=== PATIENT | female | born 1965 | race Caucasian/White ===

== ENCOUNTER 2018-12-06 18:05 | Emergency (ER) | payer OTHER ==
[2018-12-06 18:08] VITALS: BP 136/83; PULSE 109; TEMP 98.5; BMI 26.5
--- NOTE | 2018-12-06 18:08 | PDOC ---
Rapid Medical Evaluation Time Seen by Provider: 12/06/18 18:06 Medical Evaluation: Allergies Allergy/AdvReac Type Severity Reaction Status Date / Time No Known Allergies Allergy Verified 12/06/18 18:06 12/06/18 18:06 I have performed a brief in-person evaluation of this patient. The patient presents with a chief complaint of:abd/flank pain w/ n/v today. H/o kidney stones Pertinent physical exam findings:Tachy to 109, edtih mildly uncomfortable I have ordered the following:labs The patient will proceed to the ED for further evaluation. Discharge Disposition - Diagnosis Abdominal pain Qualifiers: Abdominal location: unspecified location Qualified Code(s): R10.9 - Unspecified abdominal pain - Referrals - Patient Instructions - Post Discharge Activity
[2018-12-06 18:32] LABS: BASO % 0.2 % (0-2.0); EOS % 0.5 % (0-4.5); HEMATOCRIT 44.2 % (32.4-45.2); HEMOGLOBIN 14.9 GM/dL (10.7-15.3); LYMPH % 5.4 % (8-40); MCH 30.2 pg (25.7-33.7); MCHC 33.8 g/dl (32.0-36.0); MEAN CELL VOLUME 89.3 fl (80-96); MEAN PLT VOLUME 8.8 fl (7.5-11.1); MONO % 2.7 % (3.8-10.2); NEUT % 91.2 % (42.8-82.8); PLATELET COUNT 231 K/MM3 (134-434); RBC 4.94 M/mm3 (3.60-5.2); RDW 12.7 % (11.6-15.6); WHITE BLOOD COUNT 11.2 K/mm3 (4.0-10.0)
[2018-12-06 19:21] LABS: PLATELET ESTIMATE ADEQUATE
[2018-12-06 19:27] LABS: HCG,QUALITATIVE URINE Negative
[2018-12-06 19:28] LABS: URINE APPEARANCE SLCLOUDY; URINE BILIRUBIN NEGATIVE (<2.0 mg/dL); URINE COLOR YELLOW; URINE GLUCOSE (UA) NEGATIVE (NEGATIVE); URINE KETONE 1+ (NEGATIVE); URINE LEUK ESTERASE 2+ (NEGATIVE); URINE NITRITE NEGATIVE (NEGATIVE); URINE PROTEIN NEGATIVE (NEGATIVE)
[2018-12-06 19:29] LABS: EPI CELLS FEW /HPF (FEW); URINE BACTERIA RARE /hpf (NONE SEEN); URINE MUCUS RARE
--- NOTE | 2018-12-06 19:29 | PDOC ---
History of Present Illness - General Chief Complaint: Pain, Acute Stated Complaint: NAUSEA/VOMITING Time Seen by Provider: 12/06/18 18:06 History Source: Patient Exam Limitations: No Limitations - History of Present Illness Travel History: No Initial Comments: 12/06/18 19:17 Best Contact: PCP: Dr. Edna Snell/Bx Pmhx: Renal colic Pshx:1999: [facility] Allergies:NKDA FH:0 Social Hx: Cigarettes/ 0 Alcohol/ 0 Drugs/0 LMP:menopausal since 2018 53-year-old female presents to the emergency department complaining of 5/10 sharp right upper quadrant/right lower quadrant abdominal discomfort which radiates to the right flank and associated with some nausea and vomiting, urinary frequency since approximately 1300 hrs. this afternoon along with epigastric discomfort. Symptoms alleviated with belching. No exacerbating factors. Patient denies any fever, chills, diarrhea, headache, dizziness, lightheadedness, neck pain/stiffness, back pains, chest pain, abdominal pains, urinary symptoms: urgency/hesitancy, hematuria, dysuria. No history of similar symptoms. Past History - Past Medical History Allergies/Adverse Reactions: Allergies Allergy/AdvReac Type Severity Reaction Status Date / Time No Known Allergies Allergy Verified 12/06/18 18:06 Home Medications: Ambulatory Orders Nitrofurantoin Monohyd/M-Cryst [Macrobid -] 100 mg PO BID #14 capsule 12/06/18 COPD: No - Suicide/Smoking/Psychosocial Hx Smoking Status: No Smoking History: Never smoked Number of Cigarettes Smoked Daily: 0 Review of Systems - Review of Systems Able to Perform ROS?: Yes Comments:: 12/06/18 19:19 CONSTITUTIONAL: Absent: fever, chills, diaphoresis, generalized weakness, malaise, loss of appetite HEENT: Absent: rhinorrhea, nasal congestion, throat pain, throat swelling, difficulty swallowing, mouth swelling, ear pain, eye pain, visual Changes CARDIOVASCULAR: Absent: chest pain, loss of consciousness, palpitations, irregular heart rate, peripheral edema RESPIRATORY: Absent: cough, shortness of breath, dyspnea with exertion, orthopnea, wheezing, stridor, hemoptysis GASTROINTESTINAL: +RUQ/RLQ pain since 1300hrs today, n/v (NBNB), epigastric pain Absent: abdominal distension,diarrhea, constipation, melena, hematochezia GENITOURINARY: +right flank pain Absent: dysuria, frequency, urgency, hesitancy, hematuria, genital pain MUSCULOSKELETAL: Absent: myalgia, arthralgia, joint swelling SKIN: Absent: rash, itching, pallor HEMATOLOGIC/IMMUNOLOGIC: Absent: easy bleeding, easy bruising, lymphadenopathy, frequent infections ENDOCRINE: Absent: unexplained weight gain, unexplained weight loss, heat intolerance, cold intolerance NEUROLOGIC: Absent: headache, focal weakness or paresthesias, dizziness, unsteady gait, seizure, mental status changes, bladder or bowel incontinence Is the patient limited Slovak proficient: No *Physical Exam - Vital Signs Last Vital Signs Temp Pulse Resp BP Pulse Ox 98.5 F 109 H 18 136/83 98 12/06/18 18:07 12/06/18 18:07 12/06/18 18:07 12/06/18 18:07 12/06/18 18:07 - Physical Exam Comments: 12/06/18 19:29 GENERAL: Well developed, well nourished. Awake and alert. No acute distress. HEENT: Normocephalic, atraumatic. PERRLA, EOMI. No conjunctival pallor. Sclera are non- icteric. Moist mucous membranes. Oropharynx is clear. NECK: Supple. Full ROM. No JVD. Carotid pulses 2+ and symmetric, without bruits. No thyromegaly. No lymphadenopathy. CARDIOVASCULAR: Regular rate and rhythm. No murmurs, rubs, or gallops. Distal pulses are 2+ and symmetric. PULMONARY: No evidence of respiratory distress. Lungs clear to auscultation bilaterally. No wheezing, rales or rhonchi. ABDOMINAL: +RUQ pain/ right flank pain Soft. Non-distended. No rebound or guarding. No organomegaly. Normoactive bowel sounds. MUSCULOSKELETAL Normal range of motion at all joints. No bony deformities or tenderness. EXTREMITIES: No cyanosis. No clubbing. No edema. No calf tenderness. SKIN: Warm and dry. Normal capillary refill. No rashes. No jaundice. NEUROLOGICAL: Alert, awake, appropriate. Cranial nerves 2-12 intact. No deficits to light touch and temperature in face, upper extremities and lower extremities. No motor deficits in the in face, upper extremities and lower extremities. Normoreflexic in the upper and lower extremities. Normal speech. Toes are down- going bilaterally. Gait is normal without ataxia. PSYCHIATRIC: Cooperative. Good eye contact. Appropriate mood and affect. Moderate Sedation - Procedure Monitoring Vital Signs: Procedure Monitoring Vital Signs Temperature 98.5 F 12/06/18 18:07 Pulse Rate 109 H 12/06/18 18:07 Respiratory Rate 18 12/06/18 18:07 Blood Pressure 136/83 12/06/18 18:07 O2 Sat by Pulse Oximetry (%) 98 12/06/18 18:07 ED Treatment Course - LABORATORY CBC & Chemistry Diagram: 12/06/18 18:15 12/06/18 19:04 - ADDITIONAL ORDERS Additional order review: Laboratory Results 12/06/18 18:15 Sodium Cancelled Potassium Cancelled Chloride Cancelled Carbon Dioxide Cancelled Anion Gap Cancelled BUN Cancelled Creatinine Cancelled Creat Clearance w eGFR Cancelled Random Glucose Cancelled Calcium Cancelled Total Bilirubin Cancelled AST Cancelled ALT Cancelled Alkaline Phosphatase Cancelled Total Protein Cancelled Albumin Cancelled 12/06/18 18:15 RBC 4.94 MCV 89.3 MCHC 33.8 RDW 12.7 MPV 8.8 Neutrophils % 91.2 H Lymphocytes % 5.4 L D Monocytes % 2.7 L Eosinophils % 0.5 D Basophils % 0.2 - RADIOLOGY Radiograph Interpretation: 12/06/18 21:12 CAT scan abdomen and pelvis with IV contrast/preliminary report No hydronephrosis. Small bilateral nonobstructing renal calculi are visualized. Probable 2.4 x 2 cm right ovarian follicles/cysts. *DC/Admit/Observation/Transfer Diagnosis at time of Disposition: Abdominal pain Qualifiers: Abdominal location: unspecified location Qualified Code(s): R10.9 - Unspecified abdominal pain Urinary tract infection Qualifiers: Urinary tract infection type: acute cystitis Hematuria presence: without hematuria Qualified Code(s): N30.00 - Acute cystitis without hematuria - Discharge Dispostion Disposition: HOME Condition at time of disposition: Stable Decision to Admit order: No - Prescriptions Prescriptions: Nitrofurantoin Monohyd/M-Cryst [Macrobid -] 100 mg PO BID #14 capsule - Referrals Referrals: Harsha Villalobos MD [Staff Physician] - Leonard Sarah MD [Staff Physician] - Elham Patel DO [Staff Physician] - - Patient Instructions Printed Discharge Instructions: DI for Urinary Tract Infection (UTI), DI for Acute Abdomen Additional Instructions: You had a CAT scan of the abdomen and pelvis with IV contrast while in the emergency department today. The preliminary radiology report states: There is no hydroureteronephrosis. A 2 mm nonobstructing right renal lower pole calculi is seen. There is also a 1 mm nonobstructing left renal lower pole calyceal calculus There is no evidence of cholelithiasis which means gallstones. The appendix does not show any definite pathology although partially visualized. The liver, spleen, pancreas, adrenal glands demonstrate no discrete noncontrast abnormality. There is no aortic aneurysm. There is no evidence of pneumoperitoneum, free intraperitoneal fluid or bowel obstruction There is a very small umbilical hernia containing fat only. Be sure to follow-up with the urologist and the aerospace medicine physician along with your physician. Increase fluids. You had IV contrast this evening Tylenol as needed You were also given Pepcid 20 mg IV, Zantac 150 mg by mouth and Maalox 300 mg by mouth Return back to the ER for any concerns, severe/persistent or worsening symptoms. - Post Discharge Activity Forms/Work/School Notes: Back to Work
[2018-12-06] MEDS ORDERED: SODIUM CHLORIDE 1,000 ML IV STA (19:45)
[2018-12-06 20:13] LABS: ALK PHOS 76 U/L (45-117); ANION GAP 8 MMOL/L (8-16); BILIRUBIN,TOTAL 0.5 mg/dL (0.2-1); BLOOD UREA NITROGEN 18 mg/dL (7-18); CALCIUM 8.5 mg/dL (8.5-10.1); CHLORIDE 106 mmol/L (98-107); CO2 26 mmol/L (21-32); CREATININE 0.6 mg/dL (0.55-1.3); GLUCOSE,RANDOM 115 mg/dL (74-106); POTASSIUM 4.1 mmol/L (3.5-5.1); SGOT/AST 15 U/L (15-37); SGPT/ALT 24 U/L (13-61); SODIUM 140 mmol/L (136-145); TOT PROT 7.5 g/dl (6.4-8.2)
[2018-12-06] MEDS ORDERED: RANITIDINE HCL 150 MG TABLET (FP) PO ONE (20:45)
[2018-12-06] MEDS ORDERED: FAMOTIDINE 20 MG/50 ML IVPB 20 MG/50 ML MG IVPB ONE ×2 (20:45→20:48)
[2018-12-06] MEDS ORDERED: MAG HYDROX/AL HYDROX/SIMETH 30 ML UNIT-DOSE CUP PO ONE (20:45)
[2018-12-06] MEDS ORDERED: RANITIDINE HCL 150 MG TABLET (FP) ONE (20:47)
[2018-12-06] MEDS ORDERED: MAG HYDROX/AL HYDROX/SIMETH 30 ML UNIT-DOSE CUP ONE (20:48)
== END 2018-12-06 21:39 | disposition home or self-care (01) ==
LOC: JER 18:05
PROC: 3E0337Z Introduction of Electrolytic and Water Balance Substance into Peripheral Vein, Percutaneous Approach (ICD-10-PCS; principal; 2018-12-06)
PROC: 3E033GC Introduction of Other Therapeutic Substance into Peripheral Vein, Percutaneous Approach (ICD-10-PCS; 2018-12-06)
DX: N30.00 Acute cystitis without hematuria (principal); N20.0 Calculus of kidney; Z87.442 Personal history of urinary calculi; N83.201 Unspecified ovarian cyst, right side
CPT/HCPCS: 36415; 74176; 80053; 81003; 81015; 84703; 85025; 99283-25; J7030

== ENCOUNTER 2021-09-15 12:07 | Emergency (ER) | payer OTHER ==
[2021-09-15 12:24] VITALS: BP 136/87; PULSE 62; TEMP 98.6; BMI 28.1
[2021-09-15] MEDS ORDERED: NAPROXEN 500 MG TABLET PO ONE (12:42)
[2021-09-15] MEDS ORDERED: METHOCARBAMOL 500 MG TABLET PO ONE (12:42)
[2021-09-15] MEDS ORDERED: NAPROXEN 500 MG TABLET ONE (12:43)
[2021-09-15] MEDS ORDERED: METHOCARBAMOL 500 MG TABLET ONE (12:43)
== END 2021-09-15 13:19 | disposition home or self-care (01) ==
LOC: JERFT 12:07
DX: S16.1XXA Strain of muscle, fascia and tendon at neck level, initial encounter (principal); X50.0XXA Overexertion from strenuous movement or load, initial encounter; Y93.F2 Activity, caregiving, lifting
CPT/HCPCS: 72050-TC-FY; 99283-25

== ENCOUNTER 2022-09-16 11:36 | Emergency (ER) | payer OTHER ==
[2022-09-16 11:40] VITALS: RESP 18; TEMP 98.4; BMI 27.4
[2022-09-16] MEDS ORDERED: LIDOCAINE VISCOUS 2% ORAL/TOP 100 ML BOTTLE MM ONE (13:06)
[2022-09-16] MEDS ORDERED: ACETAMINOPHEN 1000 MG/100 ML BAG IVPB ONE (13:12)
[2022-09-16] MEDS ORDERED: ACETAMINOPHEN INJECTION 100 ML IVPB ONE (13:24)
[2022-09-16] MEDS ORDERED: LIDOCAINE VISCOUS 2% ORAL/TOP 15 ML UNIT-DOSE CUP ONE (13:24)
[2022-09-16 14:12] LABS: HEMATOCRIT 42.8 % (32.4-45.2); HEMOGLOBIN 14.6 GM/dL (10.7-15.3); MCHC 34.1 g/dl (32.0-36.0); MEAN CELL VOLUME 88.1 fl (80-96); MEAN PLT VOLUME 8.2 fl (7.5-11.1); PLATELET COUNT 285 10^3/uL (134-434); RBC 4.86 M/mm3 (3.60-5.2); RDW 12.7 % (11.6-15.6); WHITE BLOOD COUNT 17.8 K/mm3 (4.0-10.0)
[2022-09-16 14:31] LABS: CALCIUM 9.8 mg/dL (8.5-10.1)
[2022-09-16 14:32] LABS: ALBUMIN 4.6 g/dl (3.4-5.0); BLOOD UREA NITROGEN 16.9 mg/dL (7-18)
[2022-09-16 14:35] LABS: CREATININE 0.7 mg/dL (0.55-1.3)
[2022-09-16 14:36] LABS: BILIRUBIN,TOTAL 0.6 mg/dL (0.2-1); TOT PROT 8.3 g/dl (6.4-8.2)
[2022-09-16 14:38] LABS: ANISOCYTOSIS 0; HELMET CELLS 0; HOWELL-JOLLY BODIES 0; MACROCYTOSIS 0; OVALOCYTE 0; ROULEAU 0; SICKELED CELLS 0; TARGET CELLS 0; TEAR DROP CELLS 0; TOXIC GRANULATION 0
[2022-09-16 17:30] LABS: EPI CELLS >36 /uL (0-25.1); HYALINE CASTS 22 /uL (0-3.1); PH,URINE 5.5 (5.0-8.0); URINE APPEARANCE CLOUDY; URINE BACTERIA 300 /uL (0-1359); URINE BILIRUBIN 1+ (NEGATIVE); URINE COLOR DK YELLOW; URINE GLUCOSE (UA) NEGATIVE (NEGATIVE); URINE KETONE 3+ (NEGATIVE); URINE LEUK ESTERASE 1+ (NEGATIVE); URINE NITRITE NEGATIVE (NEGATIVE); URINE PROTEIN 1+ (NEGATIVE); URINE RBC 32 /uL (0-23.9); URINE WBC 210 /uL (0-25.8)
[2022-09-16 18:43] VITALS: BP 120/70; PULSE 79
== END 2022-09-16 19:18 | disposition home or self-care (01) ==
LOC: JER 11:36
PROC: 3E0333Z Introduction of Anti-inflammatory into Peripheral Vein, Percutaneous Approach (ICD-10-PCS; principal; 2022-09-16)
DX: K59.00 Constipation, unspecified (principal)
CPT/HCPCS: 36415; 74176-TC; 80053; 81003; 85025; 99284-25